=== PATIENT | female | born 1995 | race Caucasian/White ===

== ENCOUNTER 2016-11-14 13:53 | Emergency (ER) | payer BC ==
[2016-11-14 13:55] VITALS: BP 140/72
--- NOTE | 2016-11-14 14:23 | RAD ---
Three-view left foot radiographs 11/14/2016 Clinical history: Left foot pain post fall. AP, lateral and oblique digital radiographs of the left foot were obtained. No fracture or dislocation of the left foot is seen. Mild enthesophyte formation is seen involving the plantar aspect of the posterior calcaneus. Impression: No fracture or dislocation of the left foot is seen.
--- NOTE | 2016-11-14 14:28 | ED.ADGEN ---
Adult General Chief Complaint Chief Complaint Left foot pain HPI HPI Patient is a 21-year-old female presents with left foot pain after twisting foot while walking down steps. Patient is able to weight-bear with slight limp. Review of Systems Review of Systems Review of symptoms as per history of present illness. Physical Exam Physical Exam Constitutional: Well developed, well nourished, no acute distress, non-toxic appearance. Extremities: Left foot, no tenderness, swelling of dorsum of the foot, no murmur bony deformity or tenderness appreciated. Neurologic: left foot, no motor weakness or loss of sensation. EKG EKG [] Radiology/Procedures Radiology/Procedures [] Impressions: Left foot sprain without evidence of bony abnormality Course & Med Decision Making Course & Med Decision Making Pertinent Labs and Imaging studies reviewed. (See chart for details) [Supportive measures, ibuprofen and tramadol recommended. PCP follow-up as needed.] Final Impression Final Impression [1 left foot sprain] Problems: Dragon Disclaimer Dragon Disclaimer This electronic medical record was generated, in whole or in part, using a voice recognition dictation system. DALLAS PURI DO Nov 14, 2016 14:28
== END 2016-11-14 14:33 | disposition home or self-care (01) ==
LOC: ER 13:53
DX: S93.602A Unspecified sprain of left foot, initial encounter (principal); X58.XXXA Exposure to other specified factors, initial encounter; Y93.01 Activity, walking, marching and hiking; Y99.8 Other external cause status; Y92.89 Other specified places as the place of occurrence of the external cause
CPT/HCPCS: 73630; 99284